=== PATIENT | female | born 1945 | race Caucasian/White ===

== ENCOUNTER 2016-06-29 10:54 | Emergency (ER) | payer OTHER ==
[~2016-06-29] VITALS: Ht 167.6 cm; Wt 75.8 kg
[~2016-06-29 10:54] MED LIST: COUMADIN5 MG PO; METOPROLOL TART25 MG PO; PRIMIDONE50 MG PO; SIMVASTATIN40 MG PO; VICODIN 5-3001 EACH PO
[2016-06-29 12:08] LABS: HEMATOCRIT 42.2 % (36.0-46.0); MCH 32.7 PG (29.0-34.0); MCHC 33.4 G/DL (30.0-36.0); MCV 97.9 FL (83-99); MEAN PLAT.VOLUME 10.2 uM^3 (9.5-12.4); PLATELET COUNT 176 K/uL (156-360); RBC DIS.WIDTH-SD 43.9 % (39-53); RED BLOOD COUNT 4.31 M/uL (3.80-5.20)
[2016-06-29 12:19] LABS: D-DIMER ELISA < 0.15 mg/L FEU (< 0.57)
[2016-06-29 12:21] LABS: CHLORIDE 102 mEq/L (99-109); SODIUM 140 mEq/L (136-147)
[2016-06-29 12:23] LABS: GLUCOSE 118 mg/dL (70-99)
[2016-06-29 12:24] LABS: ANION GAP 10 MEQ/L (2-14)
[2016-06-29 12:25] LABS: TOTAL BILIRUBIN 0.4 mg/dL (0.0-1.0)
[2016-06-29 12:26] LABS: ALKALINE PHOSPHATASE 60 IU/L (3-129)
[2016-06-29 12:27] LABS: GFR ESTIMATE (CALCULATED) 47 mL/min/
[2016-06-29 12:28] LABS: UREA NITROGEN (BUN) 15 mg/dL (9-23)
[2016-06-29 13:04] LABS: ADD MIUA? NO; BILIRUBIN NEGATIVE; BLOOD NEGATIVE; COLOR YELLOW ((YELLOW)); GLUCOSE (STRIP) NEGATIVE; KETONES NEGATIVE; LEUKOCYTES NEGATIVE; NITRITE NEGATIVE; PROTEIN (STRIP) NEGATIVE; SPECIFIC GRAVITY 1.025 (1.000-1.030); UCUL ADDED? NO; UROBILINOGEN 0.2 MG/DL (0.2-1.0)
[2016-06-29] MEDS ORDERED: ZOFRAN4 MG PO (13:21)
[2016-06-29 13:39] VITALS: BP 127/79
== END 2016-06-29 13:40 | disposition home or self-care (01) ==
LOC: EME 10:54
PROVIDERS: Nurse Practitioner Family
DX: R10.9 Unspecified abdominal pain (principal); E86.0 Dehydration; I10 Essential (primary) hypertension; E78.5 Hyperlipidemia, unspecified; I48.91 Unspecified atrial fibrillation; Z79.01 Long term (current) use of anticoagulants; Z95.5 Presence of coronary angioplasty implant and graft
CPT/HCPCS: 74177; 80053; 81003; 83605; 85027; 85379; 93005; 99281; 99284; J2405; J7030

== ENCOUNTER 2017-09-14 05:17 | Emergency (ER) | payer OTHER ==
[~2017-09-14] VITALS: Ht 167.6 cm; Wt 78.8 kg
[~2017-09-14 05:17] MED LIST changes: +ZOFRAN4 MG PO
[2017-09-14 05:51] LABS: HEMATOCRIT 40.4 % (36.0-46.0); HEMOGLOBIN 14.1 G/DL (11.9-15.5); MCH 33.3 PG (29.0-34.0); MCHC 34.9 G/DL (30.0-36.0); MCV 95.5 FL (83-99); PLATELET COUNT 67 K/uL (156-360); RBC DIS.WIDTH-CV 11.9 % (11.8-14.6); RBC DIS.WIDTH-SD 41.9 % (39-53); RED BLOOD COUNT 4.23 M/uL (3.80-5.20); WHITE BLOOD COUNT 6.4 K/uL (4.1-10.2)
[2017-09-14 06:02] LABS: CHLORIDE 100 mEq/L (99-109); POTASSIUM 3.4 mEq/L (3.7-5.4); SODIUM 138 mEq/L (136-147)
[2017-09-14 06:03] LABS: GLUCOSE 106 mg/dL (70-99)
[2017-09-14 06:07] LABS: CREATININE 1.1 mg/dL (0.6-1.3); GFR ESTIMATE (CALCULATED) 52 mL/min/
[2017-09-14 06:08] LABS: UREA NITROGEN (BUN) 18 mg/dL (9-23)
[2017-09-14 06:48] LABS: INTER. NORMALIZED RATIO 1.5
[2017-09-14 07:06] LABS: TROP-I INTERPRETATION NEGATIVE; TROPONIN-I 0.01 ng/mL (0.0-0.30)
[2017-09-14 08:14] LABS: TROP-I INTERPRETATION NEGATIVE; TROPONIN-I < 0.01 ng/mL (0.0-0.30)
[2017-09-14] MEDS ORDERED: ZITHROMAX Z-PA250 MG PO (08:37)
[2017-09-14] MEDS ORDERED: PROVENTIL HFA6.7 GM IH (08:41)
[2017-09-14 08:57] VITALS: BP 121/96
== END 2017-09-14 09:15 | disposition home or self-care (01) ==
LOC: EME 05:17
PROVIDERS: Emergency Medicine
DX: J20.9 Acute bronchitis, unspecified (principal); E78.5 Hyperlipidemia, unspecified; I10 Essential (primary) hypertension; I48.91 Unspecified atrial fibrillation; Z95.5 Presence of coronary angioplasty implant and graft; Z79.01 Long term (current) use of anticoagulants; Z91.040 Latex allergy status
CPT/HCPCS: 71046; 80048; 84484; 85027; 85610; 93005; 94640; 99281; 99284